=== PATIENT | male | born 1955 | race Caucasian/White ===

== ENCOUNTER 2021-03-20 14:26 | Outpatient (CLI) | payer MEDICARE, SELFPAY ==
--- NOTE | ~2021-03-20 | CT_ITS ---
EXAMINATION: CT lung screening DATE: 03/20/2021 15:13 INDICATION: Personal history of nicotine dependence TECHNIQUE: Computed tomography (CT) of the chest was performed without intravenous contrast. The dose -length product was 69.80 mGy-cm. Automated exposure control and iterative reconstruction technique w ere employed. COMPARISON: Chest x-ray dated 02/03/2016 FINDINGS: No thoracic lymphadenopathy. Heart size is normal. There is mild atherosclerosis of the cor onary arteries. No significant pleural or pericardial effusion. There is a 4 mm right lower lobe nodu le which is not clearly calcified. There is a 5 mm right upper lobe nodule, image 24. There is a 3-4 mm right lower lobe nodule, image 69. No pneumothorax. No focal airspace consolidation. No acute osse ous abnormality. No focal lytic or blastic lesions. IMPRESSION: 1. Lung-RADS category 2: Benign appearance or behavior. Continue annual screening with noncontrast lo w-dose chest CT in 12 months. Reviewed, dictated and finalized at location A. IMPRESSION: 1. Lung-RADS category 2: Benign appearance or behavior. Continue annual screeni ng with noncontrast low-dose chest CT in 12 months.
== END 2021-03-20 14:27 | disposition home or self-care (01) ==
PROVIDERS: PCP Internal Medicine; Visit Provider Internal Medicine
DX: Z87.891 Personal history of nicotine dependence (principal)
CPT/HCPCS: 71271

== ENCOUNTER 2022-05-25 14:49 | Outpatient (CLI) | payer MEDICARE, SELFPAY ==
--- NOTE | ~2022-05-25 | CT_ITS ---
EXAMINATION:CT lung screening DATE: 05/25/2022 15:36 INDICATION: Tobacco abuse. Current smoker with 33 pack year history. TECHNIQUE: Computed tomography (CT) of the chest was performed without intravenous contrast. Automate d exposure control and iterative reconstruction technique were employed. The dose-length product (DLP ) was 72.29 mGy-cm. COMPARISON: Chest CT 03/20/2021 FINDINGS: There is still mild scarring at the lung apices. Again seen is a 5 mm nodule in right upper lobe. Again seen is a 4 mm nodule in left upper lobe. There is mild emphysema. There is mild bronchi ectasis in the inferior lungs. There is a 3 mm nodule in right middle lobe. No pleural effusion. The heart size is normal. No pericardial effusion. There are coronary artery calcifications. There is 8 d egrees levocurvature of upper thoracic spine. IMPRESSION: 1. Lung-RADS category 2: Benign appearance or behavior. Continue annual screening with noncontrast lo w-dose chest CT in 12 months. Reviewed, dictated and finalized at location A. IMPRESSION: 1. Lung-RADS category 2: Benign appearance or behavior. Continue annual screeni ng with noncontrast low-dose chest CT in 12 months.
== END 2022-05-25 14:50 | disposition home or self-care (01) ==
PROVIDERS: PCP Internal Medicine; Visit Provider Internal Medicine
DX: Z12.2 Encounter for screening for malignant neoplasm of respiratory organs (principal); Z87.891 Personal history of nicotine dependence
CPT/HCPCS: 71271

== ENCOUNTER 2022-12-06 01:04 | Day surgery (SDC) | payer MEDICARE, SELFPAY ==
[2022-11-27 16:07] VITALS: BMI 18.6
--- NOTE | 2022-12-05 14:57 | PM.HPGS ---
History of Present Illness History of Present Illness Consent: Risks, benefits, and alternatives have been discussed and questions answered. Patient agrees to proceed with procedure. Chief complaint: neoplasm screening Narrative: Edwin Noriega is a 67 year old male Referred for colon cancer screening. A final report that he had a colonoscopy in 2018 with fulguration of a tiny, 2 mm polyp. Review of Systems Review of Systems: All systems reviewed & are unremarkable except as noted in HPI and below PMFSH Past Medical History Medical History ASHD (arteriosclerotic heart disease) Bleeding disorder Broken wrist COPD (chronic obstructive pulmonary disease) COVID-19 Encounter to establish care Hx of retinal detachment Ischemia Palpitations Right elbow pain Surgical History Surgical History Hx of appendectomy Hx of eye surgery Family History Family History Mother Family history of Alzheimer's disease Other Family history of coronary artery disease Family history of premature coronary heart disease Social History Social History Smoking packs per day: 1 Smoking cigarettes per day: 20.0 Years smoked: 34 Smoking pack-years: 34.00 Smoking status: Current every day smoker Tobacco type: cigarettes Second hand tobacco smoke exposure: Yes Alcohol intake: current Drinks per week: 3 Alcohol use details: social Substance use: never Substance use type: does not use Lack of Transportation: No Lack of Food: Never True Current Housing: I Have Housing Concerned About Future Housing: No Difficulty Paying Gas/Electric Bills: No Difficulty Paying for Meds: No Currently Unemployed: No Education: Master's Degree or Higher Difficulty w/ Childcare or Family Care: No Living arrangements: with family Occupation/Education: occupation Gender identity (if verbalized by the patient): Male Spiritual care concerns: No Meds Home Medications and Allergies Home Medications Medication Instructions Recorded Confirmed Type dicyclomine 10 mg capsule 20 mg PO BID PRN Spasms 09/08/19 11/27/22 History famotidine 10 mg tablet 10 mg PO DAILY 09/08/20 11/27/22 History brimonidine 0.2 % eye drops 1 drp EACH EYE HS 03/29/22 11/27/22 History amlodipine 10 mg tablet 10 mg PO DAILY #90 tabs 06/29/22 11/27/22 Rx mirtazapine 45 mg tablet 45 mg PO DAILY #90 tabs 07/18/22 11/27/22 Rx clopidogrel 75 mg tablet 75 mg PO DAILY #90 tabs 09/28/22 11/27/22 Rx ezetimibe 10 mg tablet (Zetia) 10 mg PO DAILY #90 tabs 09/28/22 11/27/22 Rx metoprolol succinate 25 mg See Rx Instructions .Route 09/28/22 11/27/22 Rx tablet,extended release 24 hr .COMPLEX #90 tabs fenofibrate nanocrystallized 145 145 mg PO DAILY #90 tabs 10/01/22 11/27/22 Rx mg tablet (Tricor) ketoconazole 2 % shampoo 1 applic topical 2XW #120 mL 10/19/22 11/27/22 Rx clotrimazole-betamethasone 1 1 applic topical BID PRN Rash 11/27/22 11/27/22 History %-0.05 % topical cream alprazolam 0.5 mg tablet 0.5 mg PO .4 TIMES A DAY anxiety 11/28/22 Rx #110 tabs Allergies Allergy/AdvReac Type Severity Reaction Status Date / Time Sulfa (Sulfonamide Allergy Severe tanika Verified 10/19/22 11:17 Antibiotics) jose syndrome tuberculin, purified protein Allergy Severe Anaphylaxis Verified 11/27/22 16:12 deriva Antihistamines - Alkylamine Allergy Intermediate tachyacardi Verified 11/27/22 16:12 a Iodinated Contrast Media Allergy Intermediate Other Verified 11/27/22 16:11 aspirin Allergy Mild Ringing in Verified 11/27/22 16:11 Ears Lipitor Allergy Severe Other Uncoded 11/27/22 16:11 IV DYES Allergy Intermediate Other Uncoded 11/27/22 16:11 Exam Const: General: alert Orientation/consciousness: patient
[2022-12-06 09:50] VITALS: BP 142/81; PULSE 81; RESP 18; TEMP 36.7; O2SAT 96; BMI 18.3
--- NOTE | 2022-12-06 10:20 | WPDANESEPPF ---
Anes - Initial Pre Proc Eval Procedure: Operation Date: 12/06/22 11:00 Proposed Procedures p Screening Colonoscopy - Thor Webster MD Date/Time: 12/06/22 10:20 Surgeon: Thor Webster MD Pre Op Diagnosis: neoplasm screening Patient Data Age: 67 Gender: M Height: 1.78 m Weight: 58 kg Last Vital Signs Temp 98.1 F 12/06/22 09:50 Pulse 81 12/06/22 09:50 Resp 18 12/06/22 09:50 BP 142/81 H 12/06/22 09:50 Pulse Ox 96 12/06/22 09:50 O2 Del Method Room Air 12/06/22 09:50 Allergies Allergy/AdvReac Type Severity Reaction Status Date / Time Sulfa (Sulfonamide Allergy Severe tanika Verified 10/19/22 11:17 Antibiotics) jose syndrome tuberculin, purified protein Allergy Severe Anaphylaxis Verified 11/27/22 16:12 deriva Antihistamines - Alkylamine Allergy Intermediate tachyacardi Verified 11/27/22 16:12 a Iodinated Contrast Media Allergy Intermediate Other Verified 11/27/22 16:11 aspirin Allergy Mild Ringing in Verified 11/27/22 16:11 Ears Lipitor Allergy Severe Other Uncoded 11/27/22 16:11 IV DYES Allergy Intermediate Other Uncoded 11/27/22 16:11 Home Medications Medication Instructions Recorded Confirmed Type dicyclomine 10 mg capsule 20 mg PO BID PRN Spasms 09/08/19 11/27/22 History famotidine 10 mg tablet 10 mg PO DAILY 09/08/20 11/27/22 History brimonidine 0.2 % eye drops 1 drp EACH EYE HS 03/29/22 11/27/22 History amlodipine 10 mg tablet 10 mg PO DAILY #90 tabs 06/29/22 11/27/22 Rx mirtazapine 45 mg tablet 45 mg PO DAILY #90 tabs 07/18/22 11/27/22 Rx clopidogrel 75 mg tablet 75 mg PO DAILY #90 tabs 09/28/22 11/27/22 Rx ezetimibe 10 mg tablet (Zetia) 10 mg PO DAILY #90 tabs 09/28/22 11/27/22 Rx metoprolol succinate 25 mg See Rx Instructions .Route 09/28/22 11/27/22 Rx tablet,extended release 24 hr .COMPLEX #90 tabs fenofibrate nanocrystallized 145 145 mg PO DAILY #90 tabs 10/01/22 11/27/22 Rx mg tablet (Tricor) ketoconazole 2 % shampoo 1 applic topical 2XW #120 mL 10/19/22 11/27/22 Rx clotrimazole-betamethasone 1 1 applic topical BID PRN Rash 11/27/22 11/27/22 History %-0.05 % topical cream alprazolam 0.5 mg tablet 0.5 mg PO .4 TIMES A DAY anxiety 11/28/22 Rx #110 tabs Patient hx anesthesia problems: none Family hx anesthesia problems: none Results Review: All pre-operative results and documents have been reviewed as part of the pre-operative evaluation. [facility]LY [facility] Past Medical History Medical History (Updated 10/19/22 @ 12:07 by Rochelle Claudio CMA) ASHD (arteriosclerotic heart disease) Bleeding disorder Broken wrist COPD (chronic obstructive pulmonary disease) COVID-19 Encounter to establish care Hx of retinal detachment Ischemia Palpitations Right elbow pain Surgical History Surgical History Hx of appendectomy Hx of eye surgery Family History Family History Mother Family history of Alzheimer's disease Other Family history of coronary artery disease Family history of premature coronary heart disease Social History Social History Smoking packs per day: 1 Smoking cigarettes per day: 20.0 Years smoked: 34 Smoking pack-years: 34.00 Smoking status: Current every day smoker Tobacco type: cigarettes Second hand tobacco smoke exposure: Yes Alcohol intake: current Drinks per week: 3 Alcohol use details: social Substance use: never Substance use type: does not use Lack of Transportation: No Lack of Food: Never True Current Housing: I Have Housing Concerned About Future Housing: No Difficulty Paying Gas/Electric Bills: No Difficulty Paying for Meds: No Currently Unemployed: No Education: Master's Degree or Higher Difficulty w/ Childcare or Family Care: No Living arrangements: with family Occupation/Education: occu
[2022-12-06] MEDS: LACTATED RINGERS 1,000 ML 150 ML IV CONT (10:22)
--- NOTE | 2022-12-06 10:35 | WPDANESEPPF ---
Anes - Initial Pre Proc Eval Procedure: Operation Date: 12/06/22 11:00 Proposed Procedures p Screening Colonoscopy - Thor Webster MD Date/Time: 12/06/22 10:35 Surgeon: Thor Webster MD Pre Op Diagnosis: neoplasm screening Patient Data Age: 67 Gender: M Height: 1.78 m Weight: 58 kg Last Vital Signs Temp 98.1 F 12/06/22 09:50 Pulse 81 12/06/22 09:50 Resp 18 12/06/22 09:50 BP 142/81 H 12/06/22 09:50 Pulse Ox 96 12/06/22 09:50 O2 Del Method Room Air 12/06/22 09:50 Allergies Allergy/AdvReac Type Severity Reaction Status Date / Time Sulfa (Sulfonamide Allergy Severe tanika Verified 10/19/22 11:17 Antibiotics) jose syndrome tuberculin, purified protein Allergy Severe Anaphylaxis Verified 11/27/22 16:12 deriva Antihistamines - Alkylamine Allergy Intermediate tachyacardi Verified 11/27/22 16:12 a Iodinated Contrast Media Allergy Intermediate Other Verified 11/27/22 16:11 aspirin Allergy Mild Ringing in Verified 11/27/22 16:11 Ears Lipitor Allergy Severe Other Uncoded 11/27/22 16:11 IV DYES Allergy Intermediate Other Uncoded 11/27/22 16:11 Home Medications Medication Instructions Recorded Confirmed Type dicyclomine 10 mg capsule 20 mg PO BID PRN Spasms 09/08/19 11/27/22 History famotidine 10 mg tablet 10 mg PO DAILY 09/08/20 11/27/22 History brimonidine 0.2 % eye drops 1 drp EACH EYE HS 03/29/22 11/27/22 History amlodipine 10 mg tablet 10 mg PO DAILY #90 tabs 06/29/22 11/27/22 Rx mirtazapine 45 mg tablet 45 mg PO DAILY #90 tabs 07/18/22 11/27/22 Rx clopidogrel 75 mg tablet 75 mg PO DAILY #90 tabs 09/28/22 11/27/22 Rx ezetimibe 10 mg tablet (Zetia) 10 mg PO DAILY #90 tabs 09/28/22 11/27/22 Rx metoprolol succinate 25 mg See Rx Instructions .Route 09/28/22 11/27/22 Rx tablet,extended release 24 hr .COMPLEX #90 tabs fenofibrate nanocrystallized 145 145 mg PO DAILY #90 tabs 10/01/22 11/27/22 Rx mg tablet (Tricor) ketoconazole 2 % shampoo 1 applic topical 2XW #120 mL 10/19/22 11/27/22 Rx clotrimazole-betamethasone 1 1 applic topical BID PRN Rash 11/27/22 11/27/22 History %-0.05 % topical cream alprazolam 0.5 mg tablet 0.5 mg PO .4 TIMES A DAY anxiety 11/28/22 Rx #110 tabs Patient hx anesthesia problems: none Family hx anesthesia problems: none Results Review: All pre-operative results and documents have been reviewed as part of the pre-operative evaluation. [facility] Past Medical History Medical History ASHD (arteriosclerotic heart disease) Bleeding disorder Broken wrist COPD (chronic obstructive pulmonary disease) COVID-19 Encounter to establish care Hx of retinal detachment Ischemia Palpitations Right elbow pain Surgical History Surgical History Hx of appendectomy Hx of eye surgery Family History Family History Mother Family history of Alzheimer's disease Other Family history of coronary artery disease Family history of premature coronary heart disease Social History Social History Smoking packs per day: 1 Smoking cigarettes per day: 20.0 Years smoked: 34 Smoking pack-years: 34.00 Smoking status: Current every day smoker Tobacco type: cigarettes Second hand tobacco smoke exposure: Yes Alcohol intake: current Drinks per week: 3 Alcohol use details: social Substance use: never Substance use type: does not use Lack of Transportation: No Lack of Food: Never True Current Housing: I Have Housing Concerned About Future Housing: No Difficulty Paying Gas/Electric Bills: No Difficulty Paying for Meds: No Currently Unemployed: No Education: Master's Degree or Higher Difficulty w/ Childcare or Family Care: No Living arrangements: with family Occupation/Education: occupation
[2022-12-06 10:59] VITALS: BP 96/64; PULSE 73; RESP 22; O2SAT 98
[2022-12-06 11:09] VITALS: BP 140/84; PULSE 76; RESP 22; O2SAT 100
[2022-12-06 11:19] VITALS: BP 146/86; PULSE 72; RESP 21; O2SAT 100
== END 2022-12-06 11:37 | disposition home or self-care (01) ==
PROVIDERS: PCP Internal Medicine; Visit Provider Internal Medicine Gastroenterology
PROC: 0DJD8ZZ Inspection of Lower Intestinal Tract, Via Natural or Artificial Opening Endoscopic (ICD-10-PCS; CPT 45378; principal; 2022-12-06 11:00)
DX: Z12.11 Encounter for screening for malignant neoplasm of colon (principal); K64.8 Other hemorrhoids; Z86.010 Personal history of colon polyps; J44.9 Chronic obstructive pulmonary disease, unspecified; I25.10 Atherosclerotic heart disease of native coronary artery without angina pectoris; F17.210 Nicotine dependence, cigarettes, uncomplicated; Z79.02 Long term (current) use of antithrombotics/antiplatelets
CPT/HCPCS: G0105; J2704; J7120

== ENCOUNTER 2024-04-15 07:49 | Outpatient (CLI) | payer MEDICARE, SELFPAY ==
--- NOTE | ~2024-04-15 | XR_ITS ---
EXAMINATION: XR lumbar spine 2-3V DATE: 04/15/2024 08:15 INDICATION: Left-sided sciatica. TECHNIQUE: 3 views of lumbar spine were obtained. COMPARISON: None. FINDINGS: The 7 degrees dextrocurvature of lumbar spine. There is 3 mm retrolisthesis of L3 on L4. Ve rtebral body heights are normal. There is mildly decreased disc height at L2-L3 and moderately decrea sed disc height at L3-L4. There is multilevel facet joint osteoarthritis, severe in lower lumbar spin e. IMPRESSION: 1. Moderate lumbar spondylosis. Reviewed, dictated and finalized at location A.
--- NOTE | ~2024-04-15 | XR_ITS ---
EXAMINATION: XR hip LT 2V w AP pelvis DATE: 04/15/2024 08:14 INDICATION: Left hip pain. TECHNIQUE: An anteroposterior view of the pelvis and 2 views of left hip were obtained. COMPARISON: None. FINDINGS: There is lumbar dextrocurvature and moderate spondylosis. No fracture. There is mild osteoa rthritis of the hips. IMPRESSION: 1. Mild osteoarthritis of the hips. Reviewed, dictated and finalized at location A.
--- NOTE | ~2024-04-15 | XR_ITS ---
EXAMINATION: XR sacroiliac joints min 3V DATE: 04/15/2024 08:15 INDICATION: Left hip pain. Left-sided sciatica. TECHNIQUE: 3 views of the sacroiliac joints were obtained. COMPARISON: None. FINDINGS: There is lumbar dextrocurvature and moderate spondylosis. No fracture. There is mild osteoa rthritis of the sacroiliac joints. IMPRESSION: 1. Mild osteoarthritis of the sacroiliac joints. No evidence of inflammatory arthropathy. Reviewed, dictated and finalized at location A. IMPRESSION: 1. Mild osteoarthritis of the sacroiliac joints. No evidence of inflammatory ar thropathy.
== END 2024-04-15 07:50 | disposition home or self-care (01) ==
PROVIDERS: PCP Internal Medicine; Visit Provider Internal Medicine
DX: M53.3 Sacrococcygeal disorders, not elsewhere classified (principal); M47.896 Other spondylosis, lumbar region; M16.0 Bilateral primary osteoarthritis of hip
CPT/HCPCS: 72100; 72202; 73502

== ENCOUNTER 2024-07-01 13:48 | Outpatient (CLI) | payer MEDICARE, SELFPAY ==
[2024-07-01 14:33] LABS: Alanine Aminotransferase 16 U/L (6-50); Albumin Level 4.5 g/dL (3.5-5.1); Alkaline Phosphatase 73 U/L (38-126); Anion Gap 8 mmol/L (4-12); Aspartate Amino Transferase 41 U/L (17-59); Bilirubin,Total 0.7 mg/dL (0.2-1.3); Blood Urea Nitrogen 10 mg/dL (9-20); Calcium 9.2 mg/dL (8.4-10.2); Carbon Dioxide 29 mmol/L (22-30); Chloride 106 mmol/L (98-107); Cholesterol 231 mg/dL (0-200); Estimated Glomerular Filt Rate 50; Glucose 116 mg/dL (65-110); HDL Direct 55 mg/dL; Potassium 3.5 mmol/L (3.4-5.0); Sodium 143 mmol/L (137-145); Triglycerides 164 mg/dL (<150)
[2024-07-01 14:44] LABS: LDL Cholesterol Direct 140 mg/dL
[2024-07-01 15:22] LABS: Free T4 Free Thyroxine 0.98 ng/mL (0.78-2.19); Vitamin D 25 Hydroxy 44.1 ng/mL
[2024-07-01 18:45] LABS: Hemoglobin A1C 4.7 % (<5.7)
== END 2024-07-01 13:49 | disposition home or self-care (01) ==
PROVIDERS: PCP Internal Medicine; Visit Provider Internal Medicine
DX: E78.5 Hyperlipidemia, unspecified (principal); I10 Essential (primary) hypertension; E55.9 Vitamin D deficiency, unspecified; R73.01 Impaired fasting glucose; Z79.899 Other long term (current) drug therapy; Z13.29 Encounter for screening for other suspected endocrine disorder
CPT/HCPCS: 36415; 80053; 80061; 82306; 83036; 84439; 84443

== ENCOUNTER 2024-08-07 10:25 | Outpatient (CLI) | payer MEDICARE, SELFPAY ==
--- NOTE | ~2024-08-07 | XR_ITS ---
EXAMINATION: XR chest 2V 08/07/2024 10:40 INDICATION: Cough and chills PROCEDURE: 2 view chest COMPARISON: 02/03/2016 FINDINGS: The lungs are clear. The cardiomediastinal silhouette is within normal limits. There are no pleural effusions. There is no pneumothorax suspected. IMPRESSION: 1: NO ACUTE CARDIOPULMONARY DISEASE. Reviewed, dictated and finalized at location B. STITCHER
== END 2024-08-07 10:26 | disposition home or self-care (01) ==
PROVIDERS: PCP Internal Medicine; Visit Provider Internal Medicine
DX: R05.9 Cough, unspecified (principal)
CPT/HCPCS: 71046

== ENCOUNTER 2024-09-16 12:28 | Outpatient (CLI) | payer MEDICARE, SELFPAY ==
--- NOTE | ~2024-09-16 | US_ITS ---
EXAMINATION: US renal BI DATE: 09/16/2024 13:27 INDICATION: Abnormal labs with abnormal findings of blood chemistry. TECHNIQUE: Multiple ultrasound grayscale images of the kidneys were obtained. COMPARISON: None. FINDINGS: The right kidney measures 9.5 x 3.6 x 4.1 cm. The left kidney measures 9.9 x 3.8 x 4.5 cm. The kidney s demonstrate normal echogenicity. There is no hydronephrosis in either kidney. No stones identified . The bladder is normal. Prostatomegaly measuring at least 3.8 x 3.5 cm. IMPRESSION: 1. Normal kidneys without hydronephrosis. 2. Mild prostatomegaly. Reviewed, dictated and finalized at location A. O VISUAL TECH
--- NOTE | ~2024-09-16 | CT_ITS ---
EXAMINATION:CT lung screening DATE: 09/16/2024 13:29 INDICATION: Personal history of nicotine dependence. Current smoker with 37 pack year history. TECHNIQUE: Computed tomography (CT) of the chest was performed without intravenous contrast. Automate d exposure control and iterative reconstruction technique were employed. The dose-length product (DLP ) was 68.48 mGy-cm. COMPARISON: Chest CT 05/25/2022 FINDINGS: There is stable mild scarring at the lung apices. There is a stable 6 mm nodule in right up per lobe. There is mild bronchiectasis in the inferior lungs. There is mild emphysema. There are few other stable nodules in the lungs measuring up to 4 mm. No pleural effusion. The heart size is normal . There are coronary artery calcifications. No pericardial effusion. There is diffuse hepatic steatos is. There is mild thoracic spondylosis. There is mild chronic height loss of T5 vertebral body. IMPRESSION: 1. Lung-RADS category 2: Benign appearance or behavior. Continue annual screening with noncontrast lo w-dose chest CT in 12 months. Reviewed, dictated and finalized at location B. TENDER IMPRESSION: 1. Lung-RADS category 2: Benign appearance or behavior. Continue annual screeni ng with noncontrast low-dose chest CT in 12 months.
== END 2024-09-16 12:29 | disposition home or self-care (01) ==
PROVIDERS: PCP Internal Medicine; Visit Provider Internal Medicine
DX: Z12.2 Encounter for screening for malignant neoplasm of respiratory organs (principal); Z87.891 Personal history of nicotine dependence; I10 Essential (primary) hypertension; R79.89 Other specified abnormal findings of blood chemistry; N40.0 Benign prostatic hyperplasia without lower urinary tract symptoms
CPT/HCPCS: 71271; 76775

== ENCOUNTER 2025-06-21 09:05 | Outpatient (CLI) | payer MEDICARE, SELFPAY ==
--- NOTE | ~2025-06-21 | XR_ITS ---
EXAMINATION: XR sternum min 2V, 06/21/2025 9:29 CDT HISTORY: S29.9XXA - Unspecified injury of thorax, initial encounter COMPARISON: No comparisons available. Findings: No acute fracture or malalignment. No significant degenerative changes. Soft tissues unremarkable. Impression: No acute fracture or malalignment. Reviewed, dictated and finalized at location P. Impression: No acute fracture or malalignment.
--- NOTE | ~2025-06-21 | XR_ITS ---
EXAMINATION: XR chest 2V, 06/21/2025 9:29 CDT HISTORY: S29.9XXA - Unspecified injury of thorax, initial encounter COMPARISON: No comparisons available. Technique: 2 views obtained. Findings: The lungs are clear, no effusion. No pneumothorax. Heart is normal size. Mediastinal and hilar contours are within normal limits. Bony thorax no acute abnormality. Impression: No acute cardiopulmonary abnormality. Reviewed, dictated and finalized at location P. Impression: No acute cardiopulmonary abnormality.
--- OUTSIDE RECORDS SUMMARY | 2025-06-21 09:48 | XMS_ITS | Clinical Summary ---
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 Role Phone J Luis Lewis MD Primary Care Provider [phone] Social History Tobacco Use Types Packs/Day Years Used Date Smoking Tobacco: Never Assessed Sex and Gender Information Value Date Recorded Sex Assigned at Not on file Legal Sex Male 6:37 PM CDT Gender Identity Not on file Sexual Orientation Not on file Last Filed Vital Signs Vital Sign Reading Time Taken Comments Blood Pressure 114/68 06/26/2018 3:46 PM CDT Pulse 68 06/26/2018 3:46 PM CDT Temperature - - Respiratory Rate - - Oxygen Saturation - - Inhaled Oxygen Concentration - - Weight 55.8 kg (123 lb) 06/26/2018 3:46 PM CDT Height 182.9 cm (6') 06/26/2018 3:46 PM CDT Body Mass Index 16.68 06/26/2018 3:46 PM CDT Plan of Treatment Health Maintenance Due Date Last Done Comments Colorectal Cancer Screening Colonoscopy (10 Years) 1953 Hepatitis C 1971 Pneumococcal Vaccine: 50+ Years (1 of 1 - PCV) 2003 Zoster Vaccines (1 of 2) 2003 Annual Medicare Wellness Visit 2018 DTaP, Tdap and Td Vaccines ( 2 - Td or Tdap) 03/08/2025 03/08/2015 COVID-19 Vaccine (3 - 2024-2 6 season) 2025 01/30/2022, 07/21/2021 Influenza Adult (#1) 2025 05/29/2014, 11/02/2013, 07/07/2012 RSV Immunization or 60+ Years (1 - 1-dose 75+ series) 2028 Hepatitis A Vaccines Aged Out No long er eligible based on patient's age to complete this topic Meningococcal B Vaccine Aged Out No l onger eligible based on patient's age to complete this topic Meningococcal Vaccine Aged Out No maria e breanna eligible based on patient's age to complete this topic RSV Immunizations Under 20 Months Aged Out No longer eligible b ased on patient's age to complete [place] [id number] Care Teams Heavy Duty Press Operator Relationship Specialty Start Date End Date J Luis Lewis MD [address] [place] [address] PCP - General INTERNAL MEDICINE 01/10/23
--- OUTSIDE RECORDS SUMMARY | 2025-06-21 09:48 | XMS_ITS | Encounter Summary ---
Author Organization [facility] Address [address] [place] [address] Care Team Providers Care Explosive Man Name Role Phone Unavailable Primary Care Provider Unavailabl e Encounter Details Date Type Department Care Team (Latest Contact Info) Description 10/07/2007 Outpatient Historical [facility] Ann Sol MD [facility] [address] [address] Other Cysts of Jaws; Postsurgical Percutaneous Transluminal Coronary Angioplasty Status; Tobacco Use Disorder; Encounter for Long-Term (Current) Use of Aspirin; Encounter for Long-Term (Current) Use of Antiplatelets/Antithrom botics; Coronary Atherosclerosis of Teller Coronary Artery; Unspecified Chronic Bronchitis (CMS/HCC); Personal History of Other Lymphatic and Hematopoietic Neoplasm; Carrier or Suspected Carrier of Other Specified Bacterial Diseases; 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; Esophageal Reflux; Osteoarth NOS-Unspec Social History Tobacco Use Types Packs/Day Years Used Date Smoking Tobacco: Never Assessed Sex and Gender Information Value Date Recorded Sex Assigned at Not on file 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 Gender Identity Not on file Sexual Orientation Not on file documented as of this encounter Plan of Treatment Not on file documented as of this encounter Procedures Procedure Name Priority Date/Time Associated Diagnosis Comments ANAEROBIC/AEROBIC CULTURE W GRAM STAIN Routine 10/22/2007 2:49 PM HEAT TREATING OPERATOR PATHOLOGY Routine 10/22/2007 1:52 PM HEAT TREATING OPERATOR HEMOGLOBIN AND HEMATOCRIT Routine 10/13/2007 1:06 PM HEAT TREATING OPERATOR documented in this encounter Results * ANAEROBIC/AEROBIC CULTURE W GRAM STAIN (10/22/2007 2:49 PM HEAT TREATING OPERATOR) GRAM STAIN Rare Gram Positive Cocci Rare WBC's seen INTERFACE SYSTEM PRELIMINARY REPORT Rare growth normal oral marcelo INTERFACE SYSTEM FINAL REPORT Rare growth normal oral marcelo INTERFACE SYSTEM Specimen obtained by aspiration (specimen) ENTIRE MANDIBLE / Unknown 10/22/2007 2:49 PM HEAT TREATING OPERATOR 10/22/2007 3:45 PM HEAT TREATING OPERATOR Ann Sol MD MICROBIOLOGY - GENERAL ORDER KAITY Final Result INTERFACE SYSTEM Refer to clinic/hospital department * PATHOLOGY (10/22/2007 1:52 PM HEAT TREATING OPERATOR) FINAL REPORT [facility] [place] [address], [place] [address] Patient: NAHED NORIEGA : 1955 Procedure Date: 10/22/2007 Accession Date: 10/22/2007 Case No: [id number] Ordering Dr: ANN SOL Case types AW, BW, FW, NW and SH are performed by [facility] [place], [place], [place] SURGICAL PATHOLOGY & NON-GYNECOLOGIC CYTOPATHOLOGY REPORT DIAGNOSIS SOFT TISSUE, RIGHT MANDIBLE, EXCISION: - BENIGN ODONTOGENIC CYST, CONSISTENT WITH A RADICULAR CYST. TEETH, NUMBERS 31 AND 19, EXTRACTION: - NO GROSS ABNORMALITIES IDENTIFIED. Specimen Description: (1) Right mandible lesion; (2) tooth #19. Operative Procedure: Right mandible mass excision, bone graft right mandible, teeth extraction #19 and #31. Patient Information/Histor y/Diagnosis: Right mandible mass. Gross: Two containers are received labeled Nahed Noriega. Received in the first container additionally labeled #2 right mandible lesion are multiple pieces of red-peck hemorrhagic tissue measuring in aggregate 1 x 1 x 0.3 cm and a 1.8 x 1 x 0.6 cm tooth. The pieces of tissue are submitted in A1. No discrete lesions are identified on the tooth. The tooth is for gross examination only. Received in the second container additionally labeled tooth #19 are two pieces of tooth measuring 1 x 0.5 x 0.3 cm and 1.4 x 0.8 x 0.4 cm. No lesions or soft tissue is present. The specimen is for gross examination only. LANRE/CYDNEY 10.22.2007 04:00 pm Microscopic: The slide is labeled [id number], Nahed Coppolacydney. The cyst is lined by variably acanthotic squamous epithelium with frequent intraepithelial neutrophils. There is a prominent acute and chronic infiltrate with hemorrhage, hemosiderin deposition, and frequent cholesterol clefts within the stroma. There are scattered foamy macrophages and giant cells containing polarizable foreign material. The features are benign and most consistent with a radicular cyst. [facility] 10.23.2007 01:34 pm Staging Form: No. ELECTRONIC SIGNATURE FOR CHENG LEIVA M.D.- 10/23/07 03:02 pm INTERFACE SYSTEM 10/22/2007 1:52 PM HEAT TREATING OPERATOR Ann Sol MD PATHOLOGY/CYTOLOGY ORDERABLE S Final Result INTERFACE SYSTEM Refer to clinic/hospital department * HEMOGLOBIN AND HEMATOCRIT (10/13/2007 1:06 PM HEAT TREATING OPERATOR) HEMATOCRIT 44.2 40.0 - 48.0 % [facility] HEMOGLOBIN 16.0 13.6 - 16.5 g/dL [facility] Blood specimen (specimen) 10/13/2007 1:06 PM HEAT TREATING OPERATOR 10/13/2007 1:59 PM HEAT TREATING OPERATOR Ann Sol MD HEMATOLOGY ORDERABLES Final Result [facility] [address] [place] [address] documented in this encounter Visit Diagnoses Diagnosis Other cysts of jaws Postsurgical percutaneous transluminal coronary angioplasty status Tobacco use disorder Encounter for long-term (current) use of aspirin Encounter for long-term (current) use of antiplatelets/antithrombotics Coronary atherosclerosis of sycuan coronary artery Unspecified chronic bronchitis (CMS/HCC) Unspecified chronic bronchitis Personal history of other lymphatic and hematopoietic neoplasm Carrier or suspected carrier of other specified bacterial diseases(V02.59) Carrier or suspected carrier of other specified bacterial diseases 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
--- OUTSIDE RECORDS SUMMARY | 2025-06-21 09:48 | XMS_ITS | Clinical Summary ---
Author Organization [facility] Address [address] 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
== END 2025-06-21 09:06 | disposition home or self-care (01) ==
PROVIDERS: PCP Internal Medicine; Visit Provider Internal Medicine
DX: S29.9XXA Unspecified injury of thorax, initial encounter (principal); X58.XXXA Exposure to other specified factors, initial encounter; R07.89 Other chest pain
CPT/HCPCS: 71046; 71120